=== PATIENT | male | born 1965 | race Hispanic/Latino ===

== ENCOUNTER 2023-05-19 07:05 | Observation (INO) | payer BC ==
[~2023-05-19] VITALS: Ht 172.7 cm; Wt 78.0 kg
[2023-05-19 07:51] LABS: HEMATOCRIT 47.3 % (42-54); MEAN CORPUSCULAR HEMOGLOBIN 33.5 pg (27.0-33.0); MEAN CORPUSCULAR HGB CONC 34.2 g/dL (32.0-36.0); MEAN CORPUSCULAR VOLUME 97.7 fL (79-99); PLATELET COUNT (AUTO) 278 K/uL (130-400); RED BLOOD CELL COUNT(AUTO) 4.84 MIL/uL (4.50-6.20); RED CELL DISTRIBUTION WIDTH 12.6 % (11.0-15.5); WHITE BLOOD COUNT (AUTO) 11.1 K/uL (4.8-10.8)
[2023-05-19 08:05] LABS: ALBUMIN 4.1 g/dL (3.5-5.0); CREATININE 0.9 mg/dL (0.5-1.5); POTASSIUM 3.7 mmol/L (3.5-5.1); TOTAL PROTEIN, SERUM 7.7 g/dL (6.0-8.3)
[2023-05-19 08:15] LABS: INR 2.15 (0.85-1.15); PROTHROMBIN TIME 23.7 SEC (9.6-11.6)
[2023-05-19 08:16] LABS: PARTIAL THROMBOPLASTIN TIME 37.9 SEC (26.3-35.5)
[2023-05-19 08:21] LABS: APPEARANCE,URINE CLEAR (CLEAR); BILIRUBIN,URINE NEGATIVE (NEGATIVE); COLOR,URINE LIGHT-YELLOW (YELLOW); GLUCOSE, URINE (UA) >=1000 mg/dL (NEGATIVE); KETONES,URINE NEGATIVE (NEGATIVE); LEUKOCYTE ESTERASE ,URINE NEGATIVE Leu/uL (NEGATIVE); NITRATE,URINE NEGATIVE (NEGATIVE); OCCULT BLOOD,URINE NEGATIVE (NEGATIVE); PROTEIN,URINE NEGATIVE (NEGATIVE); UROBILINOGEN,URINE 0.2 mg/dL (0.2-1.0)
[2023-05-19 08:32] LABS: RBC,URINE 0-1 /HPF (0-1); WBC,URINE 0-1 /HPF (0-1)
[2023-05-19 09:02] LABS: BASOPHILS % (MANUAL) 2 % (0-2); EOSINOPHILS % (MANUAL) 2 % (1-6); LYMPHOCYTES % (MANUAL) 16 % (22-44); MAN.DIFF COMMENT-IMPRESSION MANUAL DIFFERENTIAL; MONOCYTES % (MANUAL) 4 % (2-9); PLATELET MORPHOLOGY COMMENT ADEQUATE; SEGMENTED NEUTROPHILS % 76 % (40-70)
[2023-05-19] MEDS ORDERED: IOHEXOL-350 75 ML VIAL IV ONE (09:57)
[2023-05-19] MEDS ORDERED: ACETAMINOPHEN 325 MG TAB PO PRN ×2 (12:00)
[2023-05-19] MEDS ORDERED: 0.9%NACL 1000ML 1,000 ML IV SCH (12:00)
[2023-05-19] MEDS ORDERED: ONDANSETRON 4MG INJ IVP PRN (12:00)
[2023-05-19] MEDS ORDERED: ATOR-2 PO (13:23)
[2023-05-19] MEDS ORDERED: GLIP5TAB11 PO (13:23)
[2023-05-19] MEDS ORDERED: ALPR-409 PO (13:23)
[2023-05-19] MEDS ORDERED: WARF7.5T49 PO (13:23)
[2023-05-19] MEDS ORDERED: METO-409 PO (13:23)
[2023-05-19] MEDS ORDERED: ISOS30TA92 PO (13:23)
[2023-05-19] MEDS ORDERED: CLOP-31 PO (13:23)
[2023-05-19] MEDS ORDERED: CYAN1TAB17 PO (13:23)
[2023-05-19] MEDS ORDERED: BUSP10TA3 PO (13:23)
[2023-05-19] MEDS ORDERED: LISI10TA24 PO (13:23)
[2023-05-19] MEDS ORDERED: ESCI20TA38 PO (13:23)
[2023-05-19] MEDS ORDERED: SEMA14TA2 PO (13:23)
[2023-05-19] MEDS ORDERED: DAPA5TAB PO (13:23)
[2023-05-19] MEDS ORDERED: RANO500T2 PO (13:23)
[2023-05-19] MEDS ORDERED: MAGNESIUM 2GM PREMIX 50ML 50 ML IV PRN (16:30)
[2023-05-19] MEDS ORDERED: NICOTINE 14 MG/ 24 HR PATCH TD SCH (16:30)
[2023-05-19] MEDS ORDERED: POTASSIUM CHLORIDE 20MEQ/100ML 100 ML IV PRN (16:30)
[2023-05-19] MEDS ORDERED: DEXTROSE 50%-WATER 50 ML DISP.SYRIN IV PRN (16:30)
[2023-05-19] MEDS ORDERED: GLUCAGON 1MG KIT 1 MG ML IM PRN (16:30)
[2023-05-19] MEDS ORDERED: POTASSIUM CHLORIDE 10% ELIXIR 20 MEQ/15 ML UDCUP PO PRN (16:30)
[2023-05-19] MEDS ORDERED: KCL 20 MEQ ERTAB PO PRN (16:30)
[2023-05-19] MEDS ORDERED: HYDR-4060 PO (16:40)
[2023-05-19] MEDS: INSULIN HUMULIN R 100 UNIT/ML 3ML SQ SCH ×4 (18:57→21:00)
[2023-05-19] MEDS ORDERED: NON-FORMULARY MEDICATION 1 EACH (Buspirone HCl 10 MG) PO SCH (21:00)
[2023-05-19] MEDS: BUSPIRONE HCL 5 MG TABLET PO SCH (22:18)
[2023-05-19] MEDS: FAMOTIDINE 20MG VIAL IV SCH (22:19)
[2023-05-19] MEDS: RANOLAZINE 500 MG TAB.SR.12H PO SCH (22:19)
[2023-05-19 23:00] VITALS: BP 121/64
[2023-05-20 04:44] LABS: HEMOGLOBIN A1C 9.1 % (4.0-6.0)
[2023-05-20 04:55] LABS: CHOLESTEROL 171 mg/dL (<200); HDL CHOLESTEROL 40 mg/dL (29-71); LDL DIRECT 112 mg/dL (0-99); TRIGLYCERIDES 154 mg/dL (30-200)
[2023-05-20] MEDS: INSULIN HUMULIN R 100 UNIT/ML 3ML SQ SCH ×4 (07:30→20:51)
[2023-05-20 08:14] VITALS: BP 125/67
[2023-05-20] MEDS ORDERED: NON-FORMULARY MEDICATION 1 EACH (Metoprolol Succinate 100 MG) PO SCH (09:00)
[2023-05-20] MEDS: [UNRECOGNIZED DRUG - OTHER] PO SCH (09:00)
[2023-05-20] MEDS ORDERED: ATORVASTATIN 40 MG TABLET PO SCH (09:00)
[2023-05-20] MEDS: PYRIDOXINE PO SCH (09:00)
[2023-05-20] MEDS ORDERED: NON-FORMULARY MEDICATION 1 EACH (Escitalopram Oxalate 20 MG) PO SCH (09:00)
[2023-05-20] MEDS: CYANOCOBALAMIN PO SCH (09:00)
[2023-05-20] MEDS: CITALOPRAM 20 MG TABLET PO SCH (10:02)
[2023-05-20] MEDS: BUSPIRONE HCL 5 MG TABLET PO SCH ×2 (10:02→20:44)
[2023-05-20] MEDS: LISINOPRIL 10 MG TABLET PO SCH (10:02)
[2023-05-20] MEDS: METOPROLOL SUCCINATE 50 MG TAB.SR.24H PO SCH (10:02)
[2023-05-20] MEDS: ASPIRIN 81MG CHEW TAB PO SCH (10:02)
[2023-05-20] MEDS: ISOSORBIDE MONO 30MG SR TAB PO SCH (10:02)
[2023-05-20] MEDS: ATORVASTATIN 40 MG TABLET PO SCH (10:02)
[2023-05-20] MEDS: RANOLAZINE 500 MG TAB.SR.12H PO SCH ×2 (10:02→20:43)
[2023-05-20] MEDS: FAMOTIDINE 20MG VIAL IV SCH ×2 (10:03→20:44)
[2023-05-20] MEDS: CLOPIDOGREL 75MG TAB PO SCH (10:03)
[2023-05-20] MEDS: NICOTINE 14 MG/ 24 HR PATCH TD SCH (10:04)
[2023-05-20 11:36] VITALS: BP 132/72
[2023-05-20] MEDS: ACETAMINOPHEN WITH CODEINE 1 TAB TAB PO PRN ×2 (13:46→18:24)
[2023-05-20 16:11] VITALS: BP 124/73
[2023-05-20 19:00] VITALS: BP 119/64
[2023-05-20] MEDS: ALPRAZOLAM 0.25 MG TABLET PO SCH (20:44)
[2023-05-20] MEDS ORDERED: ALPRAZOLAM 0.25 MG PO SCH (21:00)
[2023-05-20 23:00] VITALS: BP 122/61
[2023-05-21 04:58] LABS: BASOPHILS % (AUTO) 0.9 % (0.0-5.0); EOSINOPHILS % (AUTO) 1.2 % (0.0-8.0); HEMATOCRIT 47.8 % (42-54); LYMPHOCYTES % (AUTO) 13.2 % (21.0-51.0); MEAN CORPUSCULAR HEMOGLOBIN 33.3 pg (27.0-33.0); MEAN CORPUSCULAR HGB CONC 33.9 g/dL (32.0-36.0); MEAN CORPUSCULAR VOLUME 98.4 fL (79-99); MONOCYTES % (AUTO) 7.8 % (3.0-13.0); NEUTROPHILS % (AUTO) 76.4 % (40.0-77.0); PLATELET COUNT (AUTO) 289 K/uL (130-400); RED BLOOD CELL COUNT(AUTO) 4.86 MIL/uL (4.50-6.20); RED CELL DISTRIBUTION WIDTH 12.9 % (11.0-15.5); WHITE BLOOD COUNT (AUTO) 13.1 K/uL (4.8-10.8)
[2023-05-21 05:00] VITALS: BP 136/65
[2023-05-21 05:16] LABS: ALBUMIN 3.8 g/dL (3.5-5.0); POTASSIUM 5.1 mmol/L (3.5-5.1); TOTAL PROTEIN, SERUM 7.2 g/dL (6.0-8.3)
[2023-05-21] MEDS: INSULIN HUMULIN R 100 UNIT/ML 3ML SQ SCH ×2 (07:30→11:30)
[2023-05-21 08:00] VITALS: BP 131/69
[2023-05-21] MEDS: [UNRECOGNIZED DRUG - OTHER] PO SCH (09:00)
[2023-05-21] MEDS: PYRIDOXINE PO SCH (09:00)
[2023-05-21] MEDS: CYANOCOBALAMIN PO SCH (09:00)
[2023-05-21] MEDS: ACETAMINOPHEN WITH CODEINE 1 TAB TAB PO PRN ×2 (09:17→10:23)
[2023-05-21] MEDS: ALPRAZOLAM 0.25 MG TABLET PO SCH (10:03)
[2023-05-21] MEDS: ATORVASTATIN 40 MG TABLET PO SCH (10:04)
[2023-05-21] MEDS: ASPIRIN 81MG CHEW TAB PO SCH (10:04)
[2023-05-21] MEDS: LISINOPRIL 10 MG TABLET PO SCH (10:04)
[2023-05-21] MEDS: ISOSORBIDE MONO 30MG SR TAB PO SCH (10:04)
[2023-05-21] MEDS: METOPROLOL SUCCINATE 50 MG TAB.SR.24H PO SCH (10:04)
[2023-05-21] MEDS: FAMOTIDINE 20MG VIAL IV SCH (10:05)
[2023-05-21] MEDS: CITALOPRAM 20 MG TABLET PO SCH (10:05)
[2023-05-21] MEDS: BUSPIRONE HCL 5 MG TABLET PO SCH (10:05)
[2023-05-21] MEDS: CLOPIDOGREL 75MG TAB PO SCH (10:05)
[2023-05-21] MEDS: NICOTINE 14 MG/ 24 HR PATCH TD SCH (10:09)
[2023-05-21] MEDS: RANOLAZINE 500 MG TAB.SR.12H PO SCH (10:09)
[2023-05-21 11:16] VITALS: BP 112/66
== END 2023-05-21 12:40 | disposition home or self-care (01) ==
LOC: EDH 07:05 → EDHIP 15:06 → 4CH 22:46
PROVIDERS: ADMIT Hospitalist; ATTEND Hospitalist
DX: G45.9 Transient cerebral ischemic attack, unspecified (principal); E87.1 Hypo-osmolality and hyponatremia; D72.829 Elevated white blood cell count, unspecified; I70.90 Unspecified atherosclerosis; E11.65 Type 2 diabetes mellitus with hyperglycemia; E78.00 Pure hypercholesterolemia, unspecified; I10 Essential (primary) hypertension; I25.10 Atherosclerotic heart disease of native coronary artery without angina pectoris; I35.0 Nonrheumatic aortic (valve) stenosis; I71.9 Aortic aneurysm of unspecified site, without rupture; G47.00 Insomnia, unspecified; K59.00 Constipation, unspecified; M43.6 Torticollis; M54.12 Radiculopathy, cervical region; M48.02 Spinal stenosis, cervical region; F41.0 Panic disorder [episodic paroxysmal anxiety]; F17.210 Nicotine dependence, cigarettes, uncomplicated; Z79.01 Long term (current) use of anticoagulants; Z86.73 Personal history of transient ischemic attack (TIA), and cerebral infarction without residual deficits; Z95.1 Presence of aortocoronary bypass graft; Z95.2 Presence of prosthetic heart valve; Z79.4 Long term (current) use of insulin; Z79.899 Other long term (current) drug therapy; Z98.890 Other specified postprocedural states
CPT/HCPCS: 96374; 99285; 83735; 80053 ×2; 85025 ×2; 85610; 85730; 82948 ×6; 81001; 36415 ×3; 71045; 70450; 70496; 70498; 93306; 92522; 92610; 93005; 96376 ×2; 96372; 83036; 80061; 70551; 72141; 97161; 97039; 97116; G0378 ×45; J3490 ×4; Q9967; G8980; G8983

== ENCOUNTER 2024-06-05 10:47 | Emergency (ER) | payer BC ==
[~2024-06-05] VITALS: Ht 172.7 cm; Wt 66.2 kg
[~2024-06-05 10:47] MED LIST: ALPR-409 PO; ATOR-2 PO; BUSP10TA3 PO; CEPH500B PO; CYAN1TAB17 PO; DAPA5TAB PO; ESCI20TA38 PO; EZET10TA48 PO; FURO20TA4 PO; GLIP5TAB15 PO; HYDR-4060 PO; ISOS30TA92 PO; LEVE250T PO; LISI2.5T13 PO; MELO-108 PO; METO-391 PO; PANT40TA54 PO; POTA-202 PO; RANO500T2 PO; SEMA14TA2 PO; SUCR1TAB2 PO; WARF-57 PO; WARF4TAB72 PO
[2024-06-05 11:33] LABS: APPEARANCE,URINE CLEAR (CLEAR); BILIRUBIN,URINE NEGATIVE (NEGATIVE); COLOR,URINE LIGHT-BROWN (YELLOW); GLUCOSE, URINE (UA) >=1000 mg/dL (NEGATIVE); KETONES,URINE NEGATIVE (NEGATIVE); LEUKOCYTE ESTERASE ,URINE NEGATIVE Leu/uL (NEGATIVE); NITRATE,URINE NEGATIVE (NEGATIVE); OCCULT BLOOD,URINE LARGE (NEGATIVE); PROTEIN,URINE 30 mg/dL (NEGATIVE); UROBILINOGEN,URINE 0.2 mg/dL (0.2-1.0)
[2024-06-05 11:47] LABS: ADD UA MICROSCOPIC YES
[2024-06-05 11:54] LABS: BASOPHILS # (AUTO) 0.07 K/uL (0.00-0.20); BASOPHILS % (AUTO) 0.7 % (0.0-5.0); EOSINOPHILS # (AUTO) 0.06 K/uL (0.00-0.70); EOSINOPHILS % (AUTO) 0.6 % (0.0-8.0); HEMATOCRIT 45.2 % (42-54); IMMATURE GRANULOCYTE ABSOLUTE 0.06 K/uL (0-1); LYMPHOCYTES # (AUTO) 1.3 K/uL (1.0-4.8); LYMPHOCYTES % (AUTO) 14.2 % (21.0-51.0); MEAN CORPUSCULAR HEMOGLOBIN 33.8 pg (27.0-33.0); MEAN CORPUSCULAR HGB CONC 34.5 g/dL (32.0-36.0); MEAN CORPUSCULAR VOLUME 97.8 fL (79-99); MONOCYTES # (AUTO) 0.6 K/uL (0.1-1.0); MONOCYTES % (AUTO) 6.3 % (3.0-13.0); NEUTROPHILS # (AUTO) 7.3 K/uL (1.8-7.7); NEUTROPHILS % (AUTO) 77.6 % (40.0-77.0); PLATELET COUNT (AUTO) 271 K/uL (130-400); RED BLOOD CELL COUNT(AUTO) 4.62 MIL/uL (4.50-6.20); RED CELL DISTRIBUTION WIDTH 12.6 % (11.0-15.5); WHITE BLOOD COUNT (AUTO) 9.5 K/uL (4.8-10.8)
[2024-06-05 12:06] LABS: BACTERIA,URINE RARE /HPF (None Seen); RBC,URINE 26-50 /HPF (0-1)
[2024-06-05 12:06] LABS: BILIRUBIN,TOTAL 0.3 mg/dL (0.2-1.0); CREATININE 0.8 mg/dL (0.5-1.3); POTASSIUM 3.9 mmol/L (3.5-5.1); TOTAL PROTEIN, SERUM 7.2 g/dL (6.0-8.3)
[2024-06-05] MEDS: 0.9%NACL 1000ML 1,000 ML IV ONE (12:54)
[2024-06-05] MEDS: KETOROLAC 30MG VIAL (30MG/ML) IVP ONE (12:54)
[2024-06-05 17:10] VITALS: BP 140/64; PULSE 58; RESP 17; O2SAT 98
== END 2024-06-05 17:09 | disposition home or self-care (01) ==
LOC: EDH 10:47
DX: R31.29 Other microscopic hematuria (principal); K80.20 Calculus of gallbladder without cholecystitis without obstruction; E11.65 Type 2 diabetes mellitus with hyperglycemia; I10 Essential (primary) hypertension; E78.00 Pure hypercholesterolemia, unspecified; Z79.899 Other long term (current) drug therapy; Z98.890 Other specified postprocedural states
CPT/HCPCS: 99284; 74176; 96374; 96361; 80053; 85025; 87086; 81001; 36415; J7030; J1885

== ENCOUNTER 2024-11-23 13:00 | Emergency (ER) | payer BC ==
[~2024-11-23] VITALS: Ht 172.7 cm; Wt 72.6 kg
--- NOTE | 2024-11-23 13:17 | ERN ---
ED Note History of Present Illness Stated Complaint: FALL Chief Complaint: Mechanical Fall Time Seen by MD: 13:02 Dictation: PATIENT IS A 59-YEAR-OLD MALE HERE WITH COMPLAINTS OF HAVING A MECHANICAL TRIP FALL APPROXIMATELY 0 900 THIS MORNING. HE STATES HE TRIPPED LANDED ON HIS RIGHT SIDE AND HIT THE RIGHT SIDE OF HIS HEAD. NO LOC NO NAUSEA VOMITING PATIENT IS ON COUMADIN AND A TRAUMA ALERT WE WILL BE CALLED. HE IS CURRENTLY ALERT AND ORIENTED X4 SPEECH IS CLEAR NIH IS 0. PATIENT STATES HE HAS CHRONIC NECK AND BACK PAIN HOWEVER NO NEW PAIN Allergies: Coded Allergies: No Known Allergies (Unverified Allergy, Unknown, 05/19/23) Home Meds Active Scripts Cephalexin Monohydrate (Keflex) 500 Mg Cap, 500 MG PO QID for 7 Days, #28 CAP Prov:OSMIN MITCHELL DO 03/27/24 Meloxicam (Meloxicam) 15 Mg Tablet, 15 MG PO DAILY PRN for PAIN for 10 Days, #10 TAB Prov:OSMIN MITCHELL DO 03/27/24 Metoprolol Succinate (Metoprolol Succinate) 50 Mg Tab.er.24h, 50 MG PO DAILY, #90 TAB 3 Refills Prov:MICHAEL AYALA MD 11/25/23 Lisinopril (Lisinopril) 2.5 Mg Tablet, 2.5 MG PO DAILY, #90 TAB 3 Refills Prov:MICHAEL AYALA MD 11/25/23 Potassium Chloride (Potassium Chloride) 20 Meq Tab.er.prt, 20 MEQ PO DAILY, #90 TAB Prov:MICHAEL AYALA MD 11/25/23 Furosemide (Furosemide) 20 Mg Tablet, 20 MG PO DAILY, #90 TAB 1 Refill Prov:MICHAEL AYALA MD 11/25/23 Warfarin Sodium (Warfarin Sodium) 5 Mg Tablet, 5 MG PO DAILY, #30 TAB take with the 4mg tablet (9mg daily dose) Prov:MICHAEL AYALA MD 11/25/23 Warfarin Sodium (Warfarin Sodium) 4 Mg Tablet, 4 MG PO DAILY, #30 TAB Take with the 5mg tablet (9mg daily dose) Prov:MICHAEL AYALA MD 11/25/23 Levetiracetam (Keppra) 250 Mg Tablet, 750 MG PO BID, #30 TAB 2 Refills Prov:PILY WATSON MD 08/30/23 Reported Medications Escitalopram Oxalate (Escitalopram Oxalate) 20 Mg Tablet, 20 MG PO DAILY, TAB 11/19/23 Ezetimibe (Ezetimibe) 10 Mg Tablet, 10 MG PO DAILY, TAB 11/19/23 Sucralfate (Sucralfate) 1 Gram Tablet, 1 GM PO QID, TAB 11/19/23 Pantoprazole Sodium (Pantoprazole Sodium) 40 Mg Tablet.dr, 40 MG PO DAILY, TAB 11/19/23 Glipizide (Glipizide) 5 Mg Tablet, 5 MG PO BID, TAB 11/19/23 Hydrocodone/Acetaminophen (Hydrocodon-Acetaminophen 5-325) 5 Mg-325 Mg Tablet, 1 EACH PO TID, TAB 05/19/23 Semaglutide (Rybelsus) 14 Mg Tablet, 14 MG PO DAILY, TAB 05/19/23 Ranolazine (RANEXA) 500 Mg Tab.er.12h, 500 MG PO BID, TAB 05/19/23 Dapagliflozin Propanediol (Farxiga) 5 Mg Tablet, 10 MG PO DAILY, TAB 05/19/23 Alprazolam (Alprazolam) 0.25 Mg Tab.rapdis, 0.25 MG PO TID, TAB 05/19/23 Buspirone HCl (Buspirone HCl) 10 Mg Tablet, 10 MG PO BID, TAB 05/19/23 Isosorbide Mononitrate (Isosorbide Mononitrate ER) 30 Mg Tab.er.24h, 30 MG PO QODAY, TAB 05/19/23 Atorvastatin Calcium (Atorvastatin Calcium) 80 Mg Tablet, 80 MG PO HS, TAB 05/19/23 Cyanocobalamin/FA/Pyridoxine (Folbic Tablet) 2 Mg-2.5 Mg-25 Mg Tablet, 1 EACH PO DAILY, TAB 05/19/23 Past Medical History Past Medical History: Diabetes-Type II, High Cholesterol, Hypertension Surgical History: CABG Surgical History Other: QUADRUPLE BYPASS Family History: CAD, HTN Social History: Negative RN Note Reviewed/Agreed w/PFSH: Yes Review of System Dictation CONSTITUTIONAL: NEGATIVE EXCEPT FOR HPI HEAD/FACE: NEGATIVE EXCEPT FOR HPI EENT: NEGATIVE EXCEPT FOR HPI RESPIRATORY: NEGATIVE EXCEPT FOR HPI GASTROINTESTINAL/ABDOMINAL: NEGATIVE EXCEPT FOR HPI GENITOURINARY: NEGATIVE EXCEPT FOR HPI MUSCULOSKELETAL: NEGATIVE EXCEPT FOR HPI INTEGUMENTARY: NEGATIVE EXCEPT FOR HPI NEUROLOGICAL/PSYCH: NEGATIVE EXCEPT FOR HPI RIGHT TEMPOROPARIETAL HEADACHE HEMATOLOGIC/LYMPHATIC: NEGATIVE EXCEPT FOR HPI ALL SYSTEMS NEGATIVE, EXCEPT NOTED ABOVE. 13 POINT REVIEW OF SYSTEMS ASSESSED AND ALL NEGATIVE EXCEPT FOR ABOVE. Initial Vital Sign VS Vital Signs Date Time Temp Pulse Resp B/P (MAP) Pulse Ox O2 Delivery O2 Flow Rate FiO2 11/23/24 13:01 98.1 72 16 124/65 97 Room Air* 0 21 Physical Exam Dictation VITAL SIGNS REVIEWED GENERAL APPEARANCE: ALERT, ORIENTED X 3, MILD ACUTE DISTRESS, WELL DEVELOPED, NOURISHED. HEAD AND FACE: MILD RIGHT TEMPOROPARIETAL TENDERNESS NO ECCHYMOSIS NO PULLIAM OR RACCOON SIGN EYES: PERRL, PINK CONJUNCTIVAS, EYELID NO TRAUMA, ANTERIOR CHAMBER WITH ARCUS SENILIS. EARS: PINNAS INTACT AND NO SIGNS OF TRAUMA OR ERYTHEMA EAR CANALS CLEAR AND NO DISCHARGE TM NO ERYTHEMA NO HEMOTYMPANUM NOSE: NO DISCHARGE, NO BLEEDING. OROPHARYNX: MOUTH NORMAL, TONGUE PINK, PHARYNX CLEAR,NO ERYTHEMA, TONSILS NO EXUDATES, NO ABSCESSES NOTED, MUCOUS MEMBRANE MOIST NECK: SUPPLE, NON-TENDER, NO THYROMEGALY, NO MASSES, NO JVD, NO BRUITS BREAST:DEFERRED CHEST:NO TENDERNESS, NO CREPITUS, NO PARADOXICAL MOVEMENT, NO RETRACTIONS LUNGS:CLEAR, WELL-VENTILATED, SYMMETRIC, NO RALES, NO WHEEZING, NO RHONCHI, NO STRIDOR, GOOD BREATH SOUNDS BILATERALLY HEART: REGULAR RATE, REGULAR RHYTHM, NO MURMUR, NO GALLOPS VASCULAR: NO PERIPHERAL EDEMA, ABDOMEN: SOFT, POSITIVE BOWEL SOUNDS, NONDISTENDED, NO GUARDING, NONTENDER, NO REBOUND, NO MASSES NO HEPATOMEGALY, NO SPLENOMEGALY, NO KELELR'S SIGN, NO HERNIAS. RECTAL: DEFERRED GENITAL: DEFERRED NEUROLOGICAL: NORMAL SPEECH, MOTOR FUNCTION INTACT, SENSORY FUNCTION INTACT MUSCULOSKELETAL: PATIENT STATES HE HAS CHRONIC NECK AND BACK PAIN HOWEVER NO NEW PAIN AT THIS TIME AFTER FALL. EXTREMITIES: NONTENDER, FULL RANGE OF MOTION SKIN: COLOR PINK, DRY, NO TURGOR, NO RASH, NO LACERATIONS, NO ABRASIONS, NO CONTUSIONS. LYMPHATIC: DEFERRED Results (Laboratory/Radiology) Laboratory/Radiology Laboratory Tests Test 11/23/24 13:26 White Blood Count 10.7 K/uL (4.8-10.8) Red Blood Count 4.67 MIL/uL (4.50-6.20) Hemoglobin 15.4 g/dL (14.0-18.0) Hematocrit 45.6 % (42-54) Mean Corpuscular Volume 97.6 fL (79-99) Mean Corpuscular Hemoglobin 33.0 pg (27.0-33.0) Mean Corpuscular Hemoglobin Concent 33.8 g/dL (32.0-36.0) Red Cell Distribution Width 15.0 % (11.0-15.5) Platelet Count 347 K/uL (130-400) Mean Platelet Volume 9.0 fL (7.5-10.5) Immature Granulocyte % (Auto) 0.5 % (0-1) Neutrophils (%) (Auto) 76.5 % (40.0-77.0) Lymphocytes (%) (Auto) 15.3 % (21.0-51.0) L Monocytes (%) (Auto) 6.6 % (3.0-13.0) Eosinophils (%) (Auto) 0.4 % (0.0-8.0) Basophils (%) (Auto) 0.7 % (0.0-5.0) Neutrophils # (Auto) 8.2 K/uL (1.8-7.7) H Lymphocytes # (Auto) 1.6 K/uL (1.0-4.8) Monocytes # (Auto) 0.7 K/uL (0.1-1.0) Eosinophils # (Auto) 0.04 K/uL (0.00-0.70) Basophils # (Auto) 0.08 K/uL (0.00-0.20) Absolute Immature Granulocyte (auto 0.05 K/uL (0-1) Nucleated Red Blood Cells 0.0 % (0.0-0.19) Prothrombin Time 17.8 SEC (9.6-11.6) H Prothromb Time International Ratio 1.67 (0.85-1.15) H Activated Partial Thromboplast Time 32.7 SEC (26.3-35.5) Sodium Level 137 mmol/L (136-145) Potassium Level 4.6 mmol/L (3.5-5.1) Chloride Level 99 mmol/L (101-111) L Carbon Dioxide Level 31 mmol/L (21-32) Blood Urea Nitrogen 11 mg/dL (7-18) Creatinine 0.9 mg/dL (0.5-1.3) Glomerular Filtration Rate Calc 99 mL/min (>90) Random Glucose 232 mg/dL (70-105) H Total Calcium 9.0 mg/dL (8.5-10.1) Total Creatine Kinase 131 U/L (21-232) # Troponin I High Sensitivity 11 ng/L (4-75) Labs Reviewed?: Yes X-RAY Comment: [facility] [address] [place] [id number] IMAGING REPORT Signed PATIENT: CRISTIANA BURGESS MR#: [id number] : 1965 SEX: M AGE: 59 LOCATION: ED ORDER 134 STATUS: REG ER REPORT#: [id number] SERVICE 43 REASON: fall ORDERING PHYSICIAN: MILTON MASSEY MD PROCEDURE: HIPS B 3V - HIP BILAT 3-4VW HIP BILAT 3-4VW REASON: fall COMPARISON: None TECHNIQUE: AP and frog-leg lateral views of the hips and pelvis, 2 views FINDINGS: Bones of the pelvis appear normal. Hip joint spaces are preserved. Proximal femurs appear normal, there are no visible fractures. Soft tissues appear unremarkable. There are no foreign bodies. IMPRESSION: 1. Normal views of the pelvis and both hips. DICTATED BY: XIMENA JONES MD DATE: 11/23/241433 ELECTRONICALLY SIGNED BY: XIMENA JONES MD DATE: 11/23/[address] Scan Comment: [facility] 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 COMPARISON: 08/28/2023 TECHNIQUE: Images are obtained from vertex to the skull base. The exam was performed without IV contrast. FINDINGS: There is some focal encephalomalacia in the right frontal deep central white matter consistent with an old stroke unchanged compared to previous MRI 08/28/2023. There are generous ventricles and sulci. There is decreased attenuation in the deep central white matter. These findings are consistent with atrophy. There are no acute appearing focal parenchymal lesions. There is no evidence of mass, intracranial hemorrhage or acute stroke. Posterior fossa and brainstem structures appear unremarkable. There are no abnormal fluid collections. Extra cranial soft tissues appear unremarkable as well. IMPRESSION: 1. Atrophy, no acute finding. 2. No evidence of intracranial hemorrhage. CT was performed with one or more following dose reduction techniques: automated exposure control, adjustment of the mA and kv according to patient's size, or use of a iterative reconstruction technique. DICTATED BY: XIMENA JONES MD DATE: 11/23/24 141 ELECTRONICALLY SIGNED BY: XIMENA JONES MD DATE: 11/23/24 1420 ED Course ED Course Orders Procedure Category Date Status Time Ct Head/Brain W/O CT 11/23/24 Resulted Contrast 13:13 Pt And Ptt LAB 11/23/24 Complete 13:13 Cbc With Differential LAB 11/23/24 Complete 13:13 Troponin I High LAB 11/23/24 Complete Sensitivity 13:13 12 Lead Ekg Tracing- EKG 11/23/24 Complete Technical 13:13 Basic Metabolic Panel LAB 11/23/24 Complete 13:13 Hip Bilat 3-4vw RAD 11/23/24 Resulted 13:44 Creatine Kinase, Total LAB 11/23/24 Complete 13:53 Acetaminophen 325 Tab PHA 11/23/24 Complete (Tylenol 325mg Tab 14:30 Current Medications Medications (Trade) Dose Ordered Sig/Sonia Route PRN Reason Start Time Stop Time Status Last Admin Dose Admin Acetaminophen (TYLenol 325MG TAB) 650 mg ONCE ONCE PO 11/23/24 14:30 11/23/24 14:31 DC 11/23/24 14:17 Vital Signs Date Time Temp Pulse Resp B/P (MAP) Pulse Ox O2 Delivery O2 Flow Rate FiO2 11/23/24 14:15 98.1 66 20 111/70 96 Room Air* 0 21 11/23/24 13:45 77 20 108/79 97 Room Air* 0 21 11/23/24 13:30 98.1 75 17 117/67 98 Room Air* 0 21 11/23/24 13:03 98.1 72 16 124/65 97 Room Air 0 11/23/24 13:01 98.1 72 16 124/65 97 Room Air* 0 21 1315/CASE TURNED OVER TO /ER . Medical Decision Making MDM MDM: Differential diagnosis: Status post fall, chronic narcotic usage, right hip strain, Patient is a 59-year-old male coming in to be evaluated for headache and hip pain after a fall. On physical exam there is some tenderness to the right hip and patient states that he hit himself in the right side in his head CT of the head x-ray did not disclose acute findings. I advised him decrease narcotic usage as this will make him feel off balance caused more falls. I also advised him appropriate follow up with PCP in 1-2 days. DX & DISP Disposition: Discharge Departure Impression: Primary Impression: Fall Additional Impression: Strain of right hip Condition: Stable Additional Instructions: FOLLOW-UP WITH PRIMARY CARE PROVIDER IN 1 TO 2 DAYS. TAKE MEDICATIONS DIRECTED HERE IN THE EMERGENCY ROOM. OKAY TO CONTINUE HOME MEDICATIONS UNLESS OTHERWISE DISCUSSED DURING YOUR VISIT IN THE EMERGENCY ROOM TODAY. RETURN TO YOUR NEAREST EMERGENCY ROOM IF SYMPTOMS WORSEN OR IF THERE IS NO IMPROVEMENT. CALL 911 IF YOU NEED IMMEDIATE ASSISTANCE. TAKE TYLENOL [id number] NEEDED AND IF NO CONTRAINDICATIONS ARE PRESENT. INCREASE ORAL HYDRATION. A WOUND CULTURE OR URINE CULTURE WAS ORDERED HERE IN THE EMERGENCY ROOM DEPARTMENT PLEASE FOLLOW-UP WITH PRIMARY CARE PROVIDER AND ADVISE THEM TO GET REPEAT PORTS FROM OUR FACILITY. IF YOU HAD ANY WRAP/SPLINTS THAT WERE APPLIED HERE, PLEASE DO NOT REMOVE THEM UNTIL YOU SEE YOUR PRIMARY CARE OR SPECIALTY. Referrals: Referrals: TUSHAR YANG MD (PCP) LISY HOLDER NP Nov 23, 2024 13:17 MILTON MASSEY MD Nov 23, 2024 15:03
[2024-11-23 13:33] LABS: BASOPHILS # (AUTO) 0.08 K/uL (0.00-0.20); BASOPHILS % (AUTO) 0.7 % (0.0-5.0); EOSINOPHILS # (AUTO) 0.04 K/uL (0.00-0.70); EOSINOPHILS % (AUTO) 0.4 % (0.0-8.0); HEMATOCRIT 45.6 % (42-54); IMMATURE GRANULOCYTE ABSOLUTE 0.05 K/uL (0-1); LYMPHOCYTES # (AUTO) 1.6 K/uL (1.0-4.8); LYMPHOCYTES % (AUTO) 15.3 % (21.0-51.0); MEAN CORPUSCULAR HGB CONC 33.8 g/dL (32.0-36.0); MEAN CORPUSCULAR VOLUME 97.6 fL (79-99); MONOCYTES # (AUTO) 0.7 K/uL (0.1-1.0); MONOCYTES % (AUTO) 6.6 % (3.0-13.0); NEUTROPHILS # (AUTO) 8.2 K/uL (1.8-7.7); NEUTROPHILS % (AUTO) 76.5 % (40.0-77.0); PLATELET COUNT (AUTO) 347 K/uL (130-400); RED BLOOD CELL COUNT(AUTO) 4.67 MIL/uL (4.50-6.20); WHITE BLOOD COUNT (AUTO) 10.7 K/uL (4.8-10.8)
[2024-11-23 13:40] LABS: CREATININE 0.9 mg/dL (0.5-1.3); POTASSIUM 4.6 mmol/L (3.5-5.1)
[2024-11-23 13:43] LABS: INR 1.67 (0.85-1.15); PROTHROMBIN TIME 17.8 SEC (9.6-11.6)
[2024-11-23 13:44] LABS: PARTIAL THROMBOPLASTIN TIME 32.7 SEC (26.3-35.5)
--- NOTE | 2024-11-23 13:45 | NUR ---
BACK FROM CT
[2024-11-23] MEDS: acetaMINOPHEN 325 MG TAB PO ONE (14:17)
--- NOTE | 2024-11-23 14:20 | HMCIMG ---
Exam: NONCONTRAST CT BRAIN REASON: RIGHT TEMPOROPARIETAL PAIN SECONDARY TO FALL PATIENT ON COUMADIN. COMPARISON: 08/28/2023 TECHNIQUE: Images are obtained from vertex to the skull base. The exam was performed without IV contrast. FINDINGS: There is some focal encephalomalacia in the right frontal deep central white matter consistent with an old stroke unchanged compared to previous MRI 08/28/2023. There are generous ventricles and sulci. There is decreased attenuation in the deep central white matter. These findings are consistent with atrophy. There are no acute appearing focal parenchymal lesions. There is no evidence of mass, intracranial hemorrhage or acute stroke. Posterior fossa and brainstem structures appear unremarkable. There are no abnormal fluid collections. Extra cranial soft tissues appear unremarkable as well. IMPRESSION: 1. Atrophy, no acute finding. 2. No evidence of intracranial hemorrhage. CT was performed with one or more following dose reduction techniques: automated exposure control, adjustment of the mA and kv according to patient's size, or use of a iterative reconstruction technique.
--- NOTE | 2024-11-23 14:27 | EKG ---
[facility] Test Date: 2024-11-23 Test Time: 13:23:21 Pat Name: CRISTIANA BURGESS Department: ED Room: Gender: M Student Development Specialist: [id number] : 1965 Requested By: LISY HOLDER Order Number: [id number] Reading MD: Shaun Encarnacion Measurements Intervals [place] Rate: 68 P: 53 TN: 198 QRS: -1 QRSD: 127 T: 130 QT: 415 QTc: 440 Interpretive Statements Sinus rhythm Probable left atrial enlargement Left bundle branch block ST elevation secondary to IVCD Compared to ECG 11/19/2023 00:03:59 Intraventricular conduction delay now present ST (T wave) deviation now present Prolonged QT interval no longer present Electronically Signed On 11-25-2024 07:55:09 COLLAR PADDER BLINDSTITCH by Shaun Encarnacion Please click the below link to view image of tracing.
--- NOTE | 2024-11-23 14:39 | HMCIMG ---
HIP BILAT 3-4VW REASON: fall COMPARISON: None TECHNIQUE: AP and frog-leg lateral views of the hips and pelvis, 2 views FINDINGS: Bones of the pelvis appear normal. Hip joint spaces are preserved. Proximal femurs appear normal, there are no visible fractures. Soft tissues appear unremarkable. There are no foreign bodies. IMPRESSION: 1. Normal views of the pelvis and both hips.
[2024-11-23 15:15] VITALS: BP 109/66; PULSE 71; RESP 18; TEMP 98; O2SAT 97
== END 2024-11-23 15:20 | disposition home or self-care (01) ==
LOC: EDH 13:00
DX: S76.011A Strain of muscle, fascia and tendon of right hip, initial encounter (principal); E11.9 Type 2 diabetes mellitus without complications; E78.00 Pure hypercholesterolemia, unspecified; I10 Essential (primary) hypertension; Z79.01 Long term (current) use of anticoagulants; Z79.84 Long term (current) use of oral hypoglycemic drugs; Z79.899 Other long term (current) drug therapy; Z95.1 Presence of aortocoronary bypass graft; W01.0XXA Fall on same level from slipping, tripping and stumbling without subsequent striking against object, initial encounter; Y93.89 Activity, other specified; Y92.89 Other specified places as the place of occurrence of the external cause; Y99.8 Other external cause status
CPT/HCPCS: 36415; 70450; 73522; 80048; 82550; 84484; 85025; 85610; 85730; 93005; 99284

== ENCOUNTER 2024-12-22 11:58 | Emergency (ER) | payer BC ==
[~2024-12-22] VITALS: Ht 172.7 cm; Wt 74.2 kg
[2024-12-22 12:46] LABS: BASOPHILS # (AUTO) 0.11 K/uL (0.00-0.20); EOSINOPHILS # (AUTO) 0.11 K/uL (0.00-0.70); HEMATOCRIT 47.6 % (42-54); IMMATURE GRANULOCYTE ABSOLUTE 0.05 K/uL (0-1); LYMPHOCYTES # (AUTO) 1.4 K/uL (1.0-4.8); LYMPHOCYTES % (AUTO) 12.8 % (21.0-51.0); MEAN CORPUSCULAR HEMOGLOBIN 32.8 pg (27.0-33.0); MEAN CORPUSCULAR HGB CONC 33.2 g/dL (32.0-36.0); MONOCYTES # (AUTO) 0.5 K/uL (0.1-1.0); MONOCYTES % (AUTO) 4.3 % (3.0-13.0); NEUTROPHILS # (AUTO) 8.7 K/uL (1.8-7.7); NEUTROPHILS % (AUTO) 80.4 % (40.0-77.0); PLATELET COUNT (AUTO) 398 K/uL (130-400); RED BLOOD CELL COUNT(AUTO) 4.81 MIL/uL (4.50-6.20); WHITE BLOOD COUNT (AUTO) 10.8 K/uL (4.8-10.8)
[2024-12-22 12:50] LABS: CARBON DIOXIDE 34 mmol/L (21-32); CHLORIDE 99 mmol/L (101-111); GLOMERULAR FILTR. RATE CALC 87 mL/min (>90); GLUCOSE,RANDOM 212 mg/dL (70-105); POTASSIUM 3.8 mmol/L (3.5-5.1); SODIUM SERUM 137 mmol/L (136-145); UREA NITROGEN, BLOOD 9 mg/dL (7-18)
[2024-12-22 12:53] LABS: ACETAMINOPHEN 9 mcg/mL (10-29); ALCOHOL, BLOOD < 3 mg/dL (0-10); SALICYLATE 6.8 mg/dL (2.8-20.0)
--- NOTE | 2024-12-22 13:14 | EKG ---
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
--- NOTE | 2024-12-22 13:19 | NUR ---
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
[2024-12-22 13:41] LABS: APPEARANCE,URINE CLEAR (CLEAR); BILIRUBIN,URINE NEGATIVE (NEGATIVE); GLUCOSE, URINE (UA) >=1000 mg/dL (NEGATIVE); KETONES,URINE NEGATIVE (NEGATIVE); LEUKOCYTE ESTERASE ,URINE NEGATIVE Leu/uL (NEGATIVE); NITRATE,URINE NEGATIVE (NEGATIVE); OCCULT BLOOD,URINE NEGATIVE (NEGATIVE); UROBILINOGEN,URINE 0.2 mg/dL (0.2-1.0)
[2024-12-22 13:42] LABS: ADD UA MICROSCOPIC YES; COLOR,URINE STRAW (YELLOW); PROTEIN,URINE NEGATIVE (NEGATIVE)
[2024-12-22 13:43] LABS: BACTERIA,URINE RARE /HPF (None Seen); RBC,URINE 0-1 /HPF (0-1)
[2024-12-22 13:46] LABS: AMPHET/METH SCREEN,URINE NEGATIVE (NEGATIVE); BARBITURATE SCREEN, URINE NEGATIVE (NEGATIVE); BENZODIAZEPINES SCREEN,URINE POSITIVE (NEGATIVE); CANNABINOID SCREEN,URINE NEGATIVE (NEGATIVE); COCAINE SCREEN,URINE NEGATIVE (NEGATIVE); OPIATE SCREEN,URINE NEGATIVE (NEGATIVE); PHENCYCLIDINE SCREEN,URINE NEGATIVE (NEGATIVE)
--- NOTE | 2024-12-22 14:03 | ERN ---
ED Note History of Present Illness Stated Complaint: SUICIDAL IDEATION Chief Complaint: Suicidal Ideation Time Seen by MD: 12:00 Time Seen by Midlevel: 12:10 Dictation: 59-year-old male with a history of hypertension, diabetes, cholesterol, open heart surgery coming in with complaints of suicidal ideation prior to arrival. Patient states he has been having trouble with the his ex- that lives in [place] and has his kids over there. States that he has received threw it phone calls and taking messages from his and this is what makes him stressed out. Patient states today he could not take it anymore and wanted to come in to aside by taking pills. Denies any homicidal ideation. Allergies: Coded Allergies: No Known Allergies (Unverified Allergy, Unknown, 05/19/23) Home Meds Active Scripts Cephalexin Monohydrate (Keflex) 500 Mg Cap, 500 MG PO QID for 7 Days, #28 CAP Prov:OSMIN MITCHELL DO 03/27/24 Meloxicam (Meloxicam) 15 Mg Tablet, 15 MG PO DAILY PRN for PAIN for 10 Days, #10 TAB Prov:OSMIN MITCHELL DO 03/27/24 Metoprolol Succinate (Metoprolol Succinate) 50 Mg Tab.er.24h, 50 MG PO DAILY, #90 TAB 3 Refills Prov:MICHAEL AYALA MD 11/25/23 Lisinopril (Lisinopril) 2.5 Mg Tablet, 2.5 MG PO DAILY, #90 TAB 3 Refills Prov:MICHAEL AYALA MD 11/25/23 Potassium Chloride (Potassium Chloride) 20 Meq Tab.er.prt, 20 MEQ PO DAILY, #90 TAB Prov:MICHAEL AYALA MD 11/25/23 Furosemide (Furosemide) 20 Mg Tablet, 20 MG PO DAILY, #90 TAB 1 Refill Prov:MICHAEL AYALA MD 11/25/23 Warfarin Sodium (Warfarin Sodium) 5 Mg Tablet, 5 MG PO DAILY, #30 TAB take with the 4mg tablet (9mg daily dose) Prov:MICHAEL AYALA MD 11/25/23 Warfarin Sodium (Warfarin Sodium) 4 Mg Tablet, 4 MG PO DAILY, #30 TAB Take with the 5mg tablet (9mg daily dose) Prov:MICHAEL AYALA MD 11/25/23 Levetiracetam (Keppra) 250 Mg Tablet, 750 MG PO BID, #30 TAB 2 Refills Prov:PILY WATSON MD 08/30/23 Reported Medications Escitalopram Oxalate (Escitalopram Oxalate) 20 Mg Tablet, 20 MG PO DAILY, TAB 11/19/23 Ezetimibe (Ezetimibe) 10 Mg Tablet, 10 MG PO DAILY, TAB 11/19/23 Sucralfate (Sucralfate) 1 Gram Tablet, 1 GM PO QID, TAB 11/19/23 Pantoprazole Sodium (Pantoprazole Sodium) 40 Mg Tablet.dr, 40 MG PO DAILY, TAB 11/19/23 Glipizide (Glipizide) 5 Mg Tablet, 5 MG PO BID, TAB 11/19/23 Hydrocodone/Acetaminophen (Hydrocodon-Acetaminophen 5-325) 5 Mg-325 Mg Tablet, 1 EACH PO TID, TAB 05/19/23 Semaglutide (Rybelsus) 14 Mg Tablet, 14 MG PO DAILY, TAB 05/19/23 Ranolazine (RANEXA) 500 Mg Tab.er.12h, 500 MG PO BID, TAB 05/19/23 Dapagliflozin Propanediol (Farxiga) 5 Mg Tablet, 10 MG PO DAILY, TAB 05/19/23 Alprazolam (Alprazolam) 0.25 Mg Tab.rapdis, 0.25 MG PO TID, TAB 05/19/23 Buspirone HCl (Buspirone HCl) 10 Mg Tablet, 10 MG PO BID, TAB 05/19/23 Isosorbide Mononitrate (Isosorbide Mononitrate ER) 30 Mg Tab.er.24h, 30 MG PO QODAY, TAB 05/19/23 Atorvastatin Calcium (Atorvastatin Calcium) 80 Mg Tablet, 80 MG PO HS, TAB 05/19/23 Cyanocobalamin/FA/Pyridoxine (Folbic Tablet) 2 Mg-2.5 Mg-25 Mg Tablet, 1 EACH PO DAILY, TAB 05/19/23 Past Medical History Past Medical History: Diabetes-Type II, High Cholesterol, Hypertension Surgical History: CABG Surgical History Other: QUADRUPLE BYPASS Family History: CAD, HTN Social History: Negative Review of System Dictation Constitutional: Negative for fever,chills, and weight loss Eyes: Negative for injury, pain,redness, and discharge ENT: Negative for injury,pain or swelling Cardiovascular: Negative for chest pain, palpitations, and edema Respiratory: Negative for shortness of breath, cough, and wheezing, Abdomen/GI: Negative for abdominal pain, nausea, vomiting, diarrhea, and constipation Back: Negative for injury and pain : Negative for injury, bleeding and discharge MS/Extremity: Negative for injury and deformity Skin: Negative for rash, and discoloration Neuro: Negative for headache, weakness, numbness, tingling, and seizure Psych: Negative for suicide ideation, homicidal ideation, and hallucinations Review of Systems: was completed Initial Vital Sign VS Vital Signs Date Time Temp Pulse Resp B/P (MAP) Pulse Ox O2 Delivery O2 Flow Rate FiO2 12/22/24 12:05 99.0 64 16 138/77 98 Room Air 0 12/22/24 13:04 21 Physical Exam Dictation General: awake, alert, NAD Head/Face: Normocephalic, atraumatic Eyes: PERRL, EOMI, vision at baseline ENT: oral cavity clear, TMs clear, no signs of infection Neck: Trachea midline, supple, no nuchal rigidity Cardiovascular: RRR, normal S1/S2, No MRGs, no JVD Respiratory: CTAB, no respiratory distress, No rales or wheezes Abdomen: Soft, non-tender, non-distended, normal bowel sounds, no guarding or rebound. Skin: Warm, dry, normal turgor, no rash MS/Extremity: Pulses equal, no cyanosis, neurovascular intact, FROM Neuro: COAx4, GCS 15, strength 5/5, CN 2-12 intact, normal cerebellar exam, normal gait, Psych: Normal behavior, mood, and affect normal Results (Laboratory/Radiology) Laboratory/Radiology Laboratory Tests Test 12/22/24 12:28 12/22/24 13:16 White Blood Count 10.8 K/uL (4.8-10.8) Red Blood Count 4.81 MIL/uL (4.50-6.20) Hemoglobin 15.8 g/dL (14.0-18.0) Hematocrit 47.6 % (42-54) Mean Corpuscular Volume 99.0 fL (79-99) Mean Corpuscular Hemoglobin 32.8 pg (27.0-33.0) Mean Corpuscular Hemoglobin Concent 33.2 g/dL (32.0-36.0) Red Cell Distribution Width 15.0 % (11.0-15.5) Platelet Count 398 K/uL (130-400) Mean Platelet Volume 9.2 fL (7.5-10.5) Immature Granulocyte % (Auto) 0.5 % (0-1) Neutrophils (%) (Auto) 80.4 % (40.0-77.0) H Lymphocytes (%) (Auto) 12.8 % (21.0-51.0) L Monocytes (%) (Auto) 4.3 % (3.0-13.0) Eosinophils (%) (Auto) 1.0 % (0.0-8.0) Basophils (%) (Auto) 1.0 % (0.0-5.0) Neutrophils # (Auto) 8.7 K/uL (1.8-7.7) H Lymphocytes # (Auto) 1.4 K/uL (1.0-4.8) Monocytes # (Auto) 0.5 K/uL (0.1-1.0) Eosinophils # (Auto) 0.11 K/uL (0.00-0.70) Basophils # (Auto) 0.11 K/uL (0.00-0.20) Absolute Immature Granulocyte (auto 0.05 K/uL (0-1) Nucleated Red Blood Cells 0.0 % (0.0-0.19) Sodium Level 137 mmol/L (136-145) Potassium Level 3.8 mmol/L (3.5-5.1) Chloride Level 99 mmol/L (101-111) L Carbon Dioxide Level 34 mmol/L (21-32) H Blood Urea Nitrogen 9 mg/dL (7-18) Creatinine 1.0 mg/dL (0.5-1.3) Glomerular Filtration Rate Calc 87 mL/min (>90) Random Glucose 212 mg/dL (70-105) H Total Calcium 8.7 mg/dL (8.5-10.1) Salicylates Level 6.8 mg/dL (2.8-20.0) Acetaminophen Level 9 mcg/mL (10-29) L Serum Alcohol < 3 mg/dL (0-10) Urine Color STRAW (YELLOW) Urine Appearance CLEAR (CLEAR) Urine pH 6.0 (5.0-8.0) Urine Specific [place] 1.011 (1.001-1.031) Urine Protein NEGATIVE mg/dL (NEGATIVE) Urine Glucose (UA) >=1000 mg/dL (NEGATIVE) H Urine Ketones NEGATIVE mg/dL (NEGATIVE) Urine Occult Blood NEGATIVE (NEGATIVE) Urine Nitrate NEGATIVE (NEGATIVE) Urine Bilirubin NEGATIVE mg/dL (NEGATIVE) Urine Urobilinogen 0.2 mg/dL (0.2-1.0) Urine Leukocyte Esterase NEGATIVE Donnie/uL Urine RBC 0-1 /HPF (0-1) Urine WBC None /HPF (0-1) Urine Bacteria RARE /HPF (None Seen) Urine Opiates Screen NEGATIVE (NEGATIVE) Urine Barbiturates Screen NEGATIVE (NEGATIVE) Urine Phencyclidine Screen NEGATIVE (NEGATIVE) Urine Amphetamines Screen NEGATIVE (NEGATIVE) Urine Benzodiazepines Screen POSITIVE (NEGATIVE) H Urine Cocaine Screen NEGATIVE (NEGATIVE) Urine Marijuana (THC) Screen NEGATIVE (NEGATIVE) Labs Reviewed?: Yes EKG Comment: Date:12/22/24 Time:1310 Ventricular rate:59 IA interval:205 QRS duration:5 QT/QTc:466/463 EKG interpretation: Sinus rhythm, borderline prolonged IA interval, left bundle-branch block Reviewed by ED Attending no STEMI interpreted by ER MD ED Course ED Course Orders Procedure Category Date Status Time Cbc With Differential LAB 12/22/24 Complete 12:05 Basic Metabolic Panel LAB 12/22/24 Complete 12:05 Urinalysis Profile LAB 12/22/24 Complete 12:05 Drug Screen Urine LAB 12/22/24 Complete 12:05 Alcohol, Blood LAB 12/22/24 Complete 12:05 Salicylate LAB 12/22/24 Complete 12:05 Acetaminophen LAB 12/22/24 Complete 12:05 12 Lead Ekg Tracing- EKG 12/22/24 Resulted Technical 12:09 Hydroxyzine 25mg Tab PHA 12/22/24 Complete (Atarax 25mg Tab) 15:52 Acetaminophen 325 Tab PHA 12/22/24 Complete (Tylenol 325mg Tab 15:52 Current Medications Medications (Trade) Dose Ordered Sig/Sonia Route PRN Reason Start Time Stop Time Status Last Admin Dose Admin Acetaminophen (TYLenol 325MG TAB) 650 mg ONCE STAT PO 12/22/24 15:52 12/22/24 15:54 DC 12/22/24 15:59 Hydroxyzine HCl (ATArax 25MG TAB) 25 mg ONCE STAT PO 12/22/24 15:52 12/22/24 15:54 DC 12/22/24 15:58 Vital Signs Date Time Temp Pulse Resp B/P (MAP) Pulse Ox O2 Delivery O2 Flow Rate FiO2 12/22/24 18:06 98.6 65 18 147/83 98 Room Air* 0 21 12/22/24 13:04 99.0 63 18 155/86 100 Room Air* 0 21 12/22/24 12:05 99.0 64 16 138/77 98 Room Air 0 Medical Decision Making MDM MDM: 59-year-old male with a history of hypertension, diabetes, cholesterol, open heart surgery coming in with complaints of suicidal ideation prior to arrival. Patient states he has been having trouble with the his ex- that lives in [place] and has his kids over there. States that he has received threw it phone calls and taking messages from his and this is what makes him s tressed out. Patient states today he could not take it anymore and wanted to come in to aside by taking pills. Denies any homicidal ideation.CBC shows no leukocytosis, no anemia, no thrombocytopenia. Chemistry unremarkable, no electrolyte abnormality, normal kidney function. Hyperglycemia at 2:12 a.m.. Urine shows no evidence of urinary tract infection. Toxicology is negative. EKGs in his not show any ST elevations or dysrhythmias. Patient's vital signs have been stable throughout his stay here in the emergency room. Patient has been cleared. Patient was screened and was accepted at [facility]. Differential diagnosis: Acute psychosis, suicidal ideations, drug intoxication, major depression Rationale: Tests considered and ordered secondary to shared decision making include: labs, ECG and radiology Previous outside records reviewed: Old ER visits. Risk of complication and/or morbidity or mortality of patient management: None Medications-Per medication reconciliation Need for hospitalization: Patient does meet criteria for hospitalization. Need for emergency major/minor surgery: No There are no social concerns with this patient. Prescription drug management Prescriptions will include symptomatic care Patient's prior external medical records from other ER visits were reviewed by me as indicated. Prior testing and results from previous visits were reviewed. Prior tests were taken into account with medical decision making and resource utilization, independent historian/historians were used to obtain complete medical history. I independently interpreted the test that were performed, results were reviewed by me and considered findings on radiology if ordered. Medical management and examination interpretation discussions were had by me with other qualified healthcare professionals as indicated for the patient's care. DX & DISP Disposition: Transfer ([facility]) Decision to Admit Date: Dec 22, 2024 Decision to Admit Time: 20:49 Departure Impression: Primary Impression: Suicidal ideation Condition: Stable Referrals: TUSHAR YANG MD (PCP) Time of Disposition: 20:49 IZABELA ALMODOVAR NP Dec 22, 2024 14:03
[2024-12-22] MEDS: hydrOXYzine 25 MG TABLET PO STA (15:58)
[2024-12-22] MEDS: acetaMINOPHEN 325 MG TAB PO STA (15:59)
--- NOTE | 2024-12-22 18:04 | NUR ---
assumed care at this time. pt is aox4 with tropical dental technologist at bedside
--- NOTE | 2024-12-22 18:10 | NUR ---
pts belongings at nurses station one bag with pants and belt, another bag with shirt jacket and medication bag. security called for belongings
--- NOTE | 2024-12-22 19:32 | NUR ---
as per tropical test case developer pt meets criteria pending placement
--- NOTE | 2024-12-22 20:53 | NUR ---
PT IS MEDICALLY CLEARED FOR TRANSPORT TO [facility]. PENDING TRANSPORT
[2024-12-22 20:54] VITALS: BP 139/79; PULSE 64; RESP 18; TEMP 98.6; O2SAT 98
--- NOTE | 2024-12-22 21:06 | NUR ---
REPORT GIVEN TO BERTHA ACEVEDO
--- NOTE | 2024-12-22 21:38 | NUR ---
Patient transported to [facility] with PD. No signs or symptoms of distress noted at this time./AMINA
== END 2024-12-22 21:53 ==
LOC: EDH 11:58
DX: R45.851 Suicidal ideations (principal); E11.9 Type 2 diabetes mellitus without complications; E78.00 Pure hypercholesterolemia, unspecified; I10 Essential (primary) hypertension; Z79.01 Long term (current) use of anticoagulants; Z79.84 Long term (current) use of oral hypoglycemic drugs; Z79.899 Other long term (current) drug therapy; Z95.1 Presence of aortocoronary bypass graft
CPT/HCPCS: 99285; 80048; 80305; 85025; 36415; 93005; 81001; G0481

== ENCOUNTER 2025-03-12 16:59 | Emergency (ER) | payer BC ==
[~2025-03-12] VITALS: Ht 172.7 cm; Wt 73.5 kg
[2025-03-12] MEDS: morPHINE 4 MG SYG IM SCH (18:31)
--- NOTE | 2025-03-12 18:33 | HMCIMG ---
LEFT WRIST RADIOGRAPHS - 3 VIEWS INDICATION: Pain COMPARISON: None FINDINGS: AP, lateral, and oblique views. Slightly displaced comminuted articular impaction fracture deformity through the distal left radial metaphysis and displaced ulnar styloid process fracture. Scaphoid bone is intact. Ulnar variance is within normal limits. Carpal alignment is well maintained. No radiopaque foreign body noted. IMPRESSION: Slightly displaced comminuted articular impaction fracture deformity through the distal left radial metaphysis and displaced ulnar styloid process fracture.
--- NOTE | 2025-03-12 18:33 | HMCIMG ---
LEFT HUMERUS RADIOGRAPHS - 2 VIEWS LEFT SHOULDER RADIOGRAPHS-2 VIEWS INDICATION: Pain COMPARISON: None FINDINGS/IMPRESSION: AP and lateral views. Chronic lateral left clavicular fracture deformity. Slightly displaced comminuted medially angulated left humeral surgical neck fracture without joint dislocation.
--- NOTE | 2025-03-12 18:33 | HMCIMG ---
LEFT ELBOW RADIOGRAPHS - 3 VIEWS INDICATION: Pain COMPARISON: None FINDINGS: AP, lateral, and oblique views. No fracture or dislocation identified. No significant joint effusion is present. No radiopaque foreign body noted. IMPRESSION: No evidence for fracture or dislocation.
--- NOTE | 2025-03-12 20:20 | ERN ---
General Chief Complaint: Arm Swelling/Redness Stated Complaint: MULTIPLE COMPLAINTS Time Seen by MD: 17:06 Time Seen by Midlevel: 17:06 Source: patient History of Present Illness Initial Comments 51-year-old male presenting to the emergency department with left arm pain. He was seen at [facility] on February 15, 2025 and was diagnosed with a fracture. The patient was unable to tell me what part of his arm is fractured. He reports continued pain but states he never follow up with an chargeback specialist outpatient. The patient was here seeking orthopedic consultation in the emergency department. Denies any other complaints at this time Allergies: Coded Allergies: No Known Allergies (Unverified Allergy, Unknown, 05/19/23) Home Meds Active Scripts Cephalexin Monohydrate (Keflex) 500 Mg Cap, 500 MG PO QID for 7 Days, #28 CAP Prov:OSMIN MITCHELL DO 03/27/24 Meloxicam (Meloxicam) 15 Mg Tablet, 15 MG PO DAILY PRN for PAIN for 10 Days, #10 TAB Prov:OSMIN MITCHELL DO 03/27/24 Metoprolol Succinate (Metoprolol Succinate) 50 Mg Tab.er.24h, 50 MG PO DAILY, #90 TAB 3 Refills Prov:MICHAEL AYALA MD 11/25/23 Lisinopril (Lisinopril) 2.5 Mg Tablet, 2.5 MG PO DAILY, #90 TAB 3 Refills Prov:MICHAEL AYALA MD 11/25/23 Potassium Chloride (Potassium Chloride) 20 Meq Tab.er.prt, 20 MEQ PO DAILY, #90 TAB Prov:MICHAEL AYALA MD 11/25/23 Furosemide (Furosemide) 20 Mg Tablet, 20 MG PO DAILY, #90 TAB 1 Refill Prov:MICHAEL AYALA MD 11/25/23 Warfarin Sodium (Warfarin Sodium) 5 Mg Tablet, 5 MG PO DAILY, #30 TAB take with the 4mg tablet (9mg daily dose) Prov:MICHAEL AYALA MD 11/25/23 Warfarin Sodium (Warfarin Sodium) 4 Mg Tablet, 4 MG PO DAILY, #30 TAB Take with the 5mg tablet (9mg daily dose) Prov:MICHAEL AYALA MD 11/25/23 Levetiracetam (Keppra) 250 Mg Tablet, 750 MG PO BID, #30 TAB 2 Refills Prov:PILY WATSON MD 08/30/23 Reported Medications Escitalopram Oxalate (Escitalopram Oxalate) 20 Mg Tablet, 20 MG PO DAILY, TAB 11/19/23 Ezetimibe (Ezetimibe) 10 Mg Tablet, 10 MG PO DAILY, TAB 11/19/23 Sucralfate (Sucralfate) 1 Gram Tablet, 1 GM PO QID, TAB 11/19/23 Pantoprazole Sodium (Pantoprazole Sodium) 40 Mg Tablet.dr, 40 MG PO DAILY, TAB 11/19/23 Glipizide (Glipizide) 5 Mg Tablet, 5 MG PO BID, TAB 11/19/23 Hydrocodone/Acetaminophen (Hydrocodon-Acetaminophen 5-325) 5 Mg-325 Mg Tablet, 1 EACH PO TID, TAB 05/19/23 Semaglutide (Rybelsus) 14 Mg Tablet, 14 MG PO DAILY, TAB 05/19/23 Ranolazine (RANEXA) 500 Mg Tab.er.12h, 500 MG PO BID, TAB 05/19/23 Dapagliflozin Propanediol (Farxiga) 5 Mg Tablet, 10 MG PO DAILY, TAB 05/19/23 Alprazolam (Alprazolam) 0.25 Mg Tab.rapdis, 0.25 MG PO TID, TAB 05/19/23 Buspirone HCl (Buspirone HCl) 10 Mg Tablet, 10 MG PO BID, TAB 05/19/23 Isosorbide Mononitrate (Isosorbide Mononitrate ER) 30 Mg Tab.er.24h, 30 MG PO QODAY, TAB 05/19/23 Atorvastatin Calcium (Atorvastatin Calcium) 80 Mg Tablet, 80 MG PO HS, TAB 05/19/23 Cyanocobalamin/FA/Pyridoxine (Folbic Tablet) 2 Mg-2.5 Mg-25 Mg Tablet, 1 EACH PO DAILY, TAB 05/19/23 Past Medical History Past Medical History: Anxiety, Diabetes-Type II, High Cholesterol, Hypertension Medical History Other: UPPER BACK PAIN Past Surgical History: CABG Surgical History Other: AORTIC VALVE Family History Family History: CAD, HTN Social History Social History: Negative ROS Dictation CONSTITUTIONAL: Negative except for HPI HEAD/FACE: Negative except for HPI EENT: Negative except for HPI RESPIRATORY: Negative except for HPI GASTROINTESTINAL/ABDOMINAL: Negative except for HPI GENITOURINARY: Negative except for HPI MUSCULOSKELETAL: Negative except for HPI INTEGUMENTARY: Negative except for HPI NEUROLOGICAL/PSYCH: Negative except for HPI HEMATOLOGIC/LYMPHATIC: Negative except for HPI All Systems Negative, Except as noted above. 13 point review of systems assessed and all negative except for above. Physical Exam Physical Exam Dictation Vital Signs reviewed General Appearance: Alert, oriented x 3, no acute distress, well developed, nourished. Head and Face: non-traumatic. Eyes: PERRL, pink conjunctivas, eyelid no trauma, anterior chamber with arcus senilis. Ears: Pinnas intact and no signs of trauma or erythema ear canals clear and no discharge TM no erythema Nose: No discharge, no bleeding. Oropharynx: Mouth normal, tongue pink, pharynx clear,no erythema, tonsils no exudates, no abscesses noted, mucous membrane moist Neck: Supple, non-tender, no thyromegaly, no masses, no JVD, no bruits Breast:Deferred Chest:No tenderness, no crepitus, no paradoxical movement, no retractions Lungs:Clear, well-ventilated, symmetric, no rales, no wheezing, no rhonchi, no stridor, good breath sounds bilaterally Heart: Regular rate, regular rhythm, no murmur, no gallops Vascular: no peripheral edema, Abdomen: Soft, positive bowel sounds, nondistended, no guarding, nontender, no rebound, no masses no hepatomegaly, no splenomegaly, no Rodriguez's sign, no hernias. Rectal: Deferred Genital: Deferred Neurological: Normal speech, motor function intact, sensory function intact Musculoskeletal: Neck nontender, full range of motion, back nontender, full range of motion, Extremities: Sling in place, posterior splint in place to left arm, sensation intact to distal left hand Skin: Color pink, dry, no turgor, no rash, no lacerations, no abrasions, no contusions. Lymphatic: Deferred MDM MDM: Case discussed with Dr. Beyer who recommends the patient call his clinic tomorrow so they can schedule him for surgery on Friday February 14, 2025. This was discussed with the patient and he was agreeable with this plan. Patient is stable for discharge Differential diagnosis: Fracture, contusion, dislocation There are no social concerns with this patient. Prescription drug management Prescriptions will include: None Medical management and examination interpretation discussions were had by me with other qualified healthcare professionals as indicated for the patient's care. ED Course Orders Procedure Category Date Status Time Elbow Comp 3+Vws Lt RAD 03/12/25 Resulted 17:22 Wrist Comp 3+Vws Lt RAD 03/12/25 Resulted 17:22 Shoulder Comp 2+Vws Lt RAD 03/12/25 Resulted 17:22 Humerus 2+Vws Lt RAD 03/12/25 Resulted 17:22 Morphine 4mg Syg PHA 03/12/25 In Process (Morphine 4mg Syg) 17:30 Current Medications Medications (Trade) Dose Ordered Sig/Sonia Route PRN Reason Start Time Stop Time Status Last Admin Dose Admin Morphine Sulfate (morPHINE 4MG SYG) 4 mg ONCE IM 03/12/25 17:30 03/12/25 22:30 03/12/25 18:31 Vital Signs Date Time Temp Pulse Resp B/P (MAP) Pulse Ox O2 Delivery O2 Flow Rate FiO2 03/12/25 18:22 98.2 53 16 136/70 98 Room Air* 0 21 03/12/25 17:17 98.2 53 16 136/70 98 Room Air [address] [address] IMAGING REPORT Signed PATIENT: CRISTIANA BURGESS MR#: [id number] : 1965 SEX: M AGE: 59 LOCATION: [facility] ORDER 22 STATUS: REG [facility]OSPITAL REPORT#: [id number] SERVICE 172 REASON: fall ORDERING PHYSICIAN: JENNI MURRAY PROCEDURE: WRST 3V LT - WRIST COMP 3+VWS LT LEFT WRIST RADIOGRAPHS - 3 VIEWS INDICATION: Pain COMPARISON: None FINDINGS: AP, lateral, and oblique views. Slightly displaced comminuted articular impaction fracture deformity through the distal left radial metaphysis and displaced ulnar styloid process fracture. Scaphoid bone is intact. Ulnar variance is within normal limits. Carpal alignment is well maintained. No radiopaque foreign body noted. IMPRESSION: Slightly displaced comminuted articular impaction fracture deformity through the distal left radial metaphysis and displaced ulnar styloid process fracture. DICTATED BY: DERRELL STOUT MD DATE: 03/12/251829 ELECTRONICALLY SIGNED BY: DERRELL STOUT MD DATE: 03/12/251832 [address] [address] IMAGING REPORT Signed PATIENT: CRISTIANA BURGESS MR#: [id number] : 1965 SEX: M AGE: 59 LOCATION: [facility] ORDER 22 STATUS: REG ER HOSPITAL REPORT#: [id number] SERVICE 21 REASON: fall ORDERING PHYSICIAN: JENNI MURRAY PROCEDURE: SHOL 2V LT - SHOULDER COMP 2+VWS LT LEFT HUMERUS RADIOGRAPHS - 2 VIEWS LEFT SHOULDER RADIOGRAPHS-2 VIEWS INDICATION: Pain COMPARISON: None FINDINGS/IMPRESSION: AP and lateral views. Chronic lateral left clavicular fracture deformity. Slightly displaced comminuted medially angulated left humeral surgical neck fracture without joint dislocation. DICTATED BY: DERRELL STOUT MD DATE: 03/12/251828 ELECTRONICALLY SIGNED BY: DERRELL STOUT MD DATE: 03/12/251832 [address] [address] IMAGING REPORT Signed PATIENT: CRISTIANA BURGESS MR#: [id number] : 1965 SEX: M AGE: 59 LOCATION: [facility] ORDER 22 STATUS: REG ER [facility] REPORT#: [id number] SERVICE 172 REASON: fall ORDERING PHYSICIAN: JENNI MURRAY PROCEDURE: HUM 2V LT - HUMERUS 2+VWS LT LEFT HUMERUS RADIOGRAPHS - 2 VIEWS LEFT SHOULDER RADIOGRAPHS-2 VIEWS INDICATION: Pain COMPARISON: None FINDINGS/IMPRESSION: AP and lateral views. Chronic lateral left clavicular fracture deformity. Slightly displaced comminuted medially angulated left humeral surgical neck fracture without joint dislocation. DICTATED BY: DERRELL STOUT MD DATE: 03/12/251828 ELECTRONICALLY SIGNED BY: DERRELL STOUT MD DATE: 03/12/251832 [place] [address] [place] [address] IMAGING REPORT Signed PATIENT: CRISTIANA BURGESS MR#: [id number] : 1965 SEX: M AGE: 59 LOCATION: [facility] ORDER 22 STATUS: REG ER REPORT#: [id number] SERVICE 21 REASON: fall ORDERING PHYSICIAN: JENNI MURRAY PROCEDURE: ELB3VW LT - ELBOW COMP 3+VWS LT LEFT ELBOW RADIOGRAPHS - 3 VIEWS INDICATION: Pain COMPARISON: None FINDINGS: AP, lateral, and oblique views. No fracture or dislocation identified. No significant joint effusion is present. No radiopaque foreign body noted. IMPRESSION: No evidence for fracture or dislocation. DICTATED BY: DERRELL STOUT MD DATE: 03/12/251830 ELECTRONICALLY SIGNED BY: DERRELL STOUT MD DATE: 03/12/251832 DX & DISP Disposition: Discharge Departure Impression: Primary Impression: Distal radius fracture, left Additional Impression: Fracture of styloid process of left ulna Condition: Stable Additional Instructions: Your x-rays reveal a distal radial ulnar fracture. Your x-rays also revealed a left proximal humerus fracture. Your case was discussed with chargeback specialist Dr. Beyer. Dr. Beyer would like for you to call his office tomorrow February 11, 2025 at [phone] so they can schedule you for surgery this Friday February 14, 2025. Referrals: TUSHAR YANG MD (PCP) Time of Disposition: 20:14 I have reviewed the case, and I agree with, Diagnosis and Plan I performed the substantive portion of the visit. I have reviewed and p ersonally made and approve the management plan that is documented in the note by myself or the LUZ. I acknowledge for responsibility for the patient's management plan. JENNI MURRAY March 12, 2025 20:20
[2025-03-12 20:28] VITALS: BP 128/66; PULSE 62; RESP 16; TEMP 98.2; O2SAT 98
== END 2025-03-12 20:29 | disposition home or self-care (01) ==
LOC: EDH 16:59
DX: S52.592A Other fractures of lower end of left radius, initial encounter for closed fracture (principal); S52.612A Displaced fracture of left ulna styloid process, initial encounter for closed fracture; E11.9 Type 2 diabetes mellitus without complications; E78.00 Pure hypercholesterolemia, unspecified; F41.9 Anxiety disorder, unspecified; I10 Essential (primary) hypertension; Z79.01 Long term (current) use of anticoagulants; Z79.84 Long term (current) use of oral hypoglycemic drugs; Z79.899 Other long term (current) drug therapy; Z95.1 Presence of aortocoronary bypass graft; X58.XXXA Exposure to other specified factors, initial encounter; Y93.89 Activity, other specified; Y92.89 Other specified places as the place of occurrence of the external cause; Y99.8 Other external cause status
CPT/HCPCS: 99284; 73080; 73060; 73030; 73110; 96372; J2270